=== PATIENT | female | born 1960 | race Caucasian/White ===

== ENCOUNTER 2021-11-27 16:04 | Inpatient (IN) | payer OTHER, SELFPAY ==
[~2021-11-27] VITALS: Ht 175.3 cm; Wt 172.8 kg
[2021-11-27] MEDS: LevALBUTEROL HCL 1.25 MG/0.5 ML *CONC.* VIAL.NEB (XOPENEX CONC.) INH SCH
[2021-11-27 16:05] VITALS: BP_SYST 120
[2021-11-27] MEDS ORDERED: FUROSEMIDE 40 MG/4 ML VIAL IVP ONE (16:15)
[2021-11-27 17:17] LABS: BASOPHILS # (AUTO) 0.1 K/uL (0.0-0.2); BASOPHILS % (AUTO) 0.7 % (0.0-2.0); EOSINOPHILS # (AUTO) 0.1 K/uL (0.0-0.4); EOSINOPHILS % (AUTO) 1.6 % (0.0-4.0); HEMATOCRIT 39.4 % (36-48); HEMOGLOBIN 12.1 g/dL (12.0-16.0); LYMPHOCYTES % (AUTO) 11.5 % (20.5-51.5); MEAN CORPUSCULAR HEMOGLOBIN 22 pg (27-31); MEAN CORPUSCULAR HGB CONC 31 % (32-36); MEAN CORPUSCULAR VOLUME 73 fL (79.0-98.0); NEUTROPHILS # (AUTO) 6.6 K/uL (1.8-7.7); NEUTROPHILS % (AUTO) 75.2 % (40.0-70.0); PLATELET COUNT (AUTO) 277 K/uL (130-430); RED BLOOD CELL COUNT(AUTO) 5.41 MIL/uL (4.2-6.2); RED CELL DISTRIBUTION WIDTH 23.4 % (9.0-15.0); WHITE BLOOD COUNT (AUTO) 8.7 K/uL (4.8-10.8)
[2021-11-27 17:34] LABS: CALCIUM 8.2 mg/dL (8.4-11.0); CREATININE 1.77 mg/dL (0.55-1.30); POTASSIUM 3.8 mmol/L (3.5-5.1)
[2021-11-27] MEDS ORDERED: LISI1TAB57 PO (17:36)
[2021-11-27] MEDS ORDERED: ASPI-1155 PO (17:36)
[2021-11-27] MEDS ORDERED: HUM100IN SQ (17:36)
[2021-11-27] MEDS ORDERED: ATEN-41 PO (17:36)
[2021-11-27] MEDS ORDERED: METF-518 PO (17:36)
[2021-11-27] MEDS ORDERED: LIP80 PO (17:36)
[2021-11-27] MEDS ORDERED: NORT10CA PO (17:38)
[2021-11-27 17:43] LABS: PHOSPHORUS 5.8 mg/dL (2.7-4.5)
[2021-11-27] MEDS ORDERED: ASPIRIN 325 MG TABLET PO ONE (18:15)
[2021-11-27 18:55] VITALS: BP_SYST 120
[2021-11-27] MEDS ORDERED: LevALBUTEROL HCL 1.25 MG/0.5 ML *CONC.* VIAL.NEB (XOPENEX CONC.) INH ONE (19:15)
[2021-11-27] MEDS ORDERED: LevALBUTEROL HCL 1.25 MG/0.5 ML *CONC.* VIAL.NEB (XOPENEX CONC.) INH PRN (19:15)
[2021-11-27 19:34] LABS: BILIRUBIN,URINE NEGATIVE (NEGATIVE); BLOOD, URINE NEGATIVE (NEGATIVE); CLARITY/URINE CLEAR (CLEAR); COLOR,URINE YELLOW (YELLOW); GLUCOSE,URINE NEGATIVE (NEGATIVE); KETONES,URINE NEGATIVE (NEGATIVE); LEUKOCYTE ESTERASE ,URINE NEGATIVE (NEGATIVE); NITRITE, URINE NEGATIVE (NEGATIVE); PH,URINE 5.5 (5.0-8.0); PROTEIN URINE NEGATIVE (NEGATIVE); UROBILINOGEN,URINE 0.2 (0.2-1.0)
[2021-11-27] MEDS: INSULIN NPH/REGULAR 70-30, 100 UNITS/ML, 10 ML VIAL SUBCUT SCH ×2 (20:38→21:00)
[2021-11-27 20:40] VITALS: BP_SYST 93
[2021-11-27] MEDS: ENOXAPARIN SODIUM 40 MG/0.4 ML SYRINGE SUBCUT SCH (21:51)
[2021-11-28] VITALS: BP_SYST 107
[2021-11-28 02:47] VITALS: BP_SYST 87
[2021-11-28 07:25] LABS: BASOPHILS # (AUTO) 0.1 K/uL (0.0-0.2); BASOPHILS % (AUTO) 0.6 % (0.0-2.0); EOSINOPHILS # (AUTO) 0.1 K/uL (0.0-0.4); EOSINOPHILS % (AUTO) 0.8 % (0.0-4.0); HEMATOCRIT 38.1 % (36-48); HEMOGLOBIN 11.5 g/dL (12.0-16.0); LYMPHOCYTES # (AUTO) 1.3 K/uL (1.0-5.5); LYMPHOCYTES % (AUTO) 13.1 % (20.5-51.5); MEAN CORPUSCULAR HEMOGLOBIN 23 pg (27-31); MEAN CORPUSCULAR HGB CONC 30 % (32-36); MEAN CORPUSCULAR VOLUME 75 fL (79.0-98.0); MONOCYTES # (AUTO) 1.3 K/uL (0.0-1.0); MONOCYTES % (AUTO) 13.2 % (1.7-9.3); NEUTROPHILS # (AUTO) 7.3 K/uL (1.8-7.7); NEUTROPHILS % (AUTO) 72.3 % (40.0-70.0); PLATELET COUNT (AUTO) 299 K/uL (130-430); RED BLOOD CELL COUNT(AUTO) 5.12 MIL/uL (4.2-6.2); RED CELL DISTRIBUTION WIDTH 23.6 % (9.0-15.0); WHITE BLOOD COUNT (AUTO) 10.1 K/uL (4.8-10.8)
[2021-11-28 08:00] VITALS: BP_SYST 97
[2021-11-28 08:10] LABS: CALCIUM 8.3 mg/dL (8.4-11.0); CREATININE 2.04 mg/dL (0.55-1.30); POTASSIUM 4.7 mmol/L (3.5-5.1)
[2021-11-28] MEDS ORDERED: ATENOLOL 25 MG TABLET(TENORMIN) PO SCH (09:00)
[2021-11-28] MEDS: cefTRIAXone 1 GM IVPB PREMIX 50 ML IV SCH (09:48)
[2021-11-28] MEDS: NORTRIPTYLINE HCL 10 MG CAPSULE PO SCH (09:52)
[2021-11-28] MEDS: ASPIRIN 81 MG TAB.CHEW PO SCH (09:52)
[2021-11-28] MEDS: ATORVASTATIN 20 MG TABLET PO SCH (09:52)
[2021-11-28] MEDS: INSULIN NPH/REGULAR 70-30, 100 UNITS/ML, 10 ML VIAL SUBCUT SCH ×2 (09:53→20:59)
[2021-11-28] MEDS: AZITHROMYCIN 500 MG in NS 250 ML IV SCH (09:53)
[2021-11-28] MEDS: LevALBUTEROL HCL 1.25 MG/0.5 ML *CONC.* VIAL.NEB (XOPENEX CONC.) INH SCH ×3 (10:30→23:51)
[2021-11-28 12:00] VITALS: BP_SYST 100
[2021-11-28 16:00] VITALS: BP_SYST 104
[2021-11-28] MEDS: INSULIN REGULAR, HUMAN 100 UNITS/ML, 10 ML VIAL (humuLIN R) SUBCUT PRN (16:22)
[2021-11-28 20:08] VITALS: BP_SYST 136
[2021-11-28] MEDS: METHYLPREDNISOLONE SOD SUCC 40 MG/ML VIAL IVP SCH (20:47)
[2021-11-28] MEDS: ENOXAPARIN SODIUM 40 MG/0.4 ML SYRINGE SUBCUT SCH (21:00)
[2021-11-29 00:29] VITALS: BP_SYST 113
[2021-11-29] MEDS: INSULIN REGULAR, HUMAN 100 UNITS/ML, 10 ML VIAL (humuLIN R) SUBCUT PRN ×4 (06:19→21:00)
[2021-11-29 07:09] LABS: BASOPHILS % (AUTO) 0.2 % (0.0-2.0); HEMATOCRIT 38.9 % (36-48); HEMOGLOBIN 11.8 g/dL (12.0-16.0); LYMPHOCYTES # (AUTO) 0.6 K/uL (1.0-5.5); LYMPHOCYTES % (AUTO) 6.5 % (20.5-51.5); MEAN CORPUSCULAR HEMOGLOBIN 22 pg (27-31); MEAN CORPUSCULAR HGB CONC 30 % (32-36); MEAN CORPUSCULAR VOLUME 74 fL (79.0-98.0); MONOCYTES # (AUTO) 0.3 K/uL (0.0-1.0); MONOCYTES % (AUTO) 2.8 % (1.7-9.3); NEUTROPHILS # (AUTO) 8.3 K/uL (1.8-7.7); NEUTROPHILS % (AUTO) 90.5 % (40.0-70.0); PLATELET COUNT (AUTO) 306 K/uL (130-430); RED BLOOD CELL COUNT(AUTO) 5.27 MIL/uL (4.2-6.2); RED CELL DISTRIBUTION WIDTH 23.4 % (9.0-15.0); WHITE BLOOD COUNT (AUTO) 9.2 K/uL (4.8-10.8)
[2021-11-29 07:27] LABS: CALCIUM 8.6 mg/dL (8.4-11.0); CREATININE 1.89 mg/dL (0.55-1.30); POTASSIUM 4.8 mmol/L (3.5-5.1); TOTAL BILIRUBIN 1.7 mg/dL (0.0-1.0)
[2021-11-29 08:00] VITALS: BP_SYST 140
[2021-11-29] MEDS: LevALBUTEROL HCL 1.25 MG/0.5 ML *CONC.* VIAL.NEB (XOPENEX CONC.) INH SCH ×3 (08:14→20:50)
[2021-11-29] MEDS: ASPIRIN 81 MG TAB.CHEW PO SCH (09:19)
[2021-11-29] MEDS: NORTRIPTYLINE HCL 10 MG CAPSULE PO SCH (09:19)
[2021-11-29] MEDS: ATORVASTATIN 20 MG TABLET PO SCH (09:19)
[2021-11-29] MEDS: cefTRIAXone 1 GM IVPB PREMIX 50 ML IV SCH (09:20)
[2021-11-29] MEDS: METHYLPREDNISOLONE SOD SUCC 40 MG/ML VIAL IVP SCH ×2 (09:20→20:48)
[2021-11-29] MEDS: INSULIN NPH/REGULAR 70-30, 100 UNITS/ML, 10 ML VIAL SUBCUT SCH ×2 (09:30→20:58)
[2021-11-29] MEDS: AZITHROMYCIN 500 MG in NS 250 ML IV SCH (10:28)
[2021-11-29 12:00] VITALS: BP_SYST 115
[2021-11-29 16:00] VITALS: BP_SYST 148
[2021-11-29] MEDS ORDERED: FLUTICASONE 250 mCg/SALMETEROL 50 mCg DISKUS W.DEV INH SCH (18:30)
[2021-11-29] MEDS: BUDESONIDE 0.5 MG/2 ML AMPUL.NEB INH SCH (20:22)
[2021-11-29 20:30] VITALS: BP_SYST 137
[2021-11-29] MEDS: ENOXAPARIN SODIUM 40 MG/0.4 ML SYRINGE SUBCUT SCH (20:55)
[2021-11-30 02:00] VITALS: BP_SYST 135
[2021-11-30] MEDS: INSULIN REGULAR, HUMAN 100 UNITS/ML, 10 ML VIAL (humuLIN R) SUBCUT PRN ×4 (06:40→21:07)
[2021-11-30 06:50] LABS: BASOPHILS % (AUTO) 0.3 % (0.0-2.0); EOSINOPHILS % (AUTO) 0.4 % (0.0-4.0); HEMATOCRIT 38.3 % (36-48); HEMOGLOBIN 11.7 g/dL (12.0-16.0); LYMPHOCYTES # (AUTO) 0.5 K/uL (1.0-5.5); LYMPHOCYTES % (AUTO) 5.2 % (20.5-51.5); MEAN CORPUSCULAR HEMOGLOBIN 22 pg (27-31); MEAN CORPUSCULAR HGB CONC 31 % (32-36); MEAN CORPUSCULAR VOLUME 73 fL (79.0-98.0); MONOCYTES # (AUTO) 0.8 K/uL (0.0-1.0); MONOCYTES % (AUTO) 7.5 % (1.7-9.3); NEUTROPHILS # (AUTO) 8.9 K/uL (1.8-7.7); NEUTROPHILS % (AUTO) 86.6 % (40.0-70.0); PLATELET COUNT (AUTO) 281 K/uL (130-430); RED BLOOD CELL COUNT(AUTO) 5.23 MIL/uL (4.2-6.2); RED CELL DISTRIBUTION WIDTH 23.2 % (9.0-15.0); WHITE BLOOD COUNT (AUTO) 10.3 K/uL (4.8-10.8)
[2021-11-30] MEDS: LevALBUTEROL HCL 1.25 MG/0.5 ML *CONC.* VIAL.NEB (XOPENEX CONC.) INH SCH ×3 (07:09→20:13)
[2021-11-30] MEDS: BUDESONIDE 0.5 MG/2 ML AMPUL.NEB INH SCH ×2 (07:10→20:12)
[2021-11-30 07:32] LABS: ALBUMIN 3.2 g/dL (3.4-4.8); CALCIUM 9.2 mg/dL (8.4-11.0); CREATININE 1.38 mg/dL (0.55-1.30); TOTAL BILIRUBIN 1.1 mg/dL (0.0-1.0)
[2021-11-30 08:00] VITALS: BP_SYST 150
[2021-11-30] MEDS: METHYLPREDNISOLONE SOD SUCC 40 MG/ML VIAL IVP SCH ×2 (09:40→20:52)
[2021-11-30] MEDS: ASPIRIN 81 MG TAB.CHEW PO SCH (09:40)
[2021-11-30] MEDS: cefTRIAXone 1 GM IVPB PREMIX 50 ML IV SCH (09:40)
[2021-11-30] MEDS: ATORVASTATIN 20 MG TABLET PO SCH (09:41)
[2021-11-30] MEDS: AZITHROMYCIN 500 MG in NS 250 ML IV SCH (09:43)
[2021-11-30] MEDS: NORTRIPTYLINE HCL 10 MG CAPSULE PO SCH (09:46)
[2021-11-30] MEDS: INSULIN NPH/REGULAR 70-30, 100 UNITS/ML, 10 ML VIAL SUBCUT SCH ×2 (09:48→21:03)
[2021-11-30 12:40] VITALS: BP_SYST 149
[2021-11-30 17:05] VITALS: BP_SYST 145
[2021-11-30 20:30] VITALS: BP_SYST 163
[2021-11-30] MEDS: ENOXAPARIN SODIUM 40 MG/0.4 ML SYRINGE SUBCUT SCH (21:00)
[2021-12-01 02:00] VITALS: BP_SYST 148; BP_SYST 155
[2021-12-01] MEDS: INSULIN REGULAR, HUMAN 100 UNITS/ML, 10 ML VIAL (humuLIN R) SUBCUT PRN ×4 (06:12→21:22)
[2021-12-01] MEDS: BUDESONIDE 0.5 MG/2 ML AMPUL.NEB INH SCH ×2 (07:27→20:26)
[2021-12-01] MEDS: LevALBUTEROL HCL 1.25 MG/0.5 ML *CONC.* VIAL.NEB (XOPENEX CONC.) INH SCH ×2 (07:27→15:00)
[2021-12-01 08:04] VITALS: BP_SYST 150
[2021-12-01] MEDS: cefTRIAXone 1 GM IVPB PREMIX 50 ML IV SCH (08:54)
[2021-12-01] MEDS: ASPIRIN 81 MG TAB.CHEW PO SCH (08:54)
[2021-12-01] MEDS: METHYLPREDNISOLONE SOD SUCC 40 MG/ML VIAL IVP SCH ×2 (08:55→21:08)
[2021-12-01] MEDS: NORTRIPTYLINE HCL 10 MG CAPSULE PO SCH (08:55)
[2021-12-01] MEDS: ATORVASTATIN 20 MG TABLET PO SCH (08:55)
[2021-12-01] MEDS: INSULIN NPH/REGULAR 70-30, 100 UNITS/ML, 10 ML VIAL SUBCUT SCH ×2 (09:22→21:23)
[2021-12-01] MEDS: AZITHROMYCIN 500 MG in NS 250 ML IV SCH (10:45)
[2021-12-01 11:33] VITALS: BP_SYST 121
[2021-12-01 15:39] VITALS: BP_SYST 134
[2021-12-01 16:24] VITALS: BP_SYST 134
[2021-12-01 20:30] VITALS: BP_SYST 145
[2021-12-01] MEDS: ENOXAPARIN SODIUM 40 MG/0.4 ML SYRINGE SUBCUT SCH (21:20)
[2021-12-02] MEDS: LevALBUTEROL HCL 1.25 MG/0.5 ML *CONC.* VIAL.NEB (XOPENEX CONC.) INH SCH ×4 (03:33→23:46)
[2021-12-02] MEDS: INSULIN REGULAR, HUMAN 100 UNITS/ML, 10 ML VIAL (humuLIN R) SUBCUT PRN ×4 (06:29→21:42)
[2021-12-02 06:30] LABS: ALBUMIN 3.3 g/dL (3.4-4.8); CALCIUM 9.1 mg/dL (8.4-11.0); CREATININE 1.05 mg/dL (0.55-1.30); TOTAL BILIRUBIN 1.4 mg/dL (0.0-1.0)
[2021-12-02 06:35] LABS: BASOPHILS % (AUTO) 0.2 % (0.0-2.0); HEMATOCRIT 40.4 % (36-48); HEMOGLOBIN 12.2 g/dL (12.0-16.0); LYMPHOCYTES # (AUTO) 0.4 K/uL (1.0-5.5); LYMPHOCYTES % (AUTO) 5.6 % (20.5-51.5); MEAN CORPUSCULAR HEMOGLOBIN 22 pg (27-31); MEAN CORPUSCULAR HGB CONC 30 % (32-36); MEAN CORPUSCULAR VOLUME 74 fL (79.0-98.0); MONOCYTES # (AUTO) 0.6 K/uL (0.0-1.0); MONOCYTES % (AUTO) 8.2 % (1.7-9.3); NEUTROPHILS # (AUTO) 6.5 K/uL (1.8-7.7); PLATELET COUNT (AUTO) 304 K/uL (130-430); RED BLOOD CELL COUNT(AUTO) 5.44 MIL/uL (4.2-6.2); RED CELL DISTRIBUTION WIDTH 23.4 % (9.0-15.0); WHITE BLOOD COUNT (AUTO) 7.5 K/uL (4.8-10.8)
[2021-12-02] MEDS: BUDESONIDE 0.5 MG/2 ML AMPUL.NEB INH SCH ×2 (07:40→19:00)
[2021-12-02 08:00] VITALS: BP_SYST 138
[2021-12-02] MEDS: ATORVASTATIN 20 MG TABLET PO SCH (08:54)
[2021-12-02] MEDS: INSULIN NPH/REGULAR 70-30, 100 UNITS/ML, 10 ML VIAL SUBCUT SCH ×2 (08:55→21:45)
[2021-12-02] MEDS: cefTRIAXone 1 GM IVPB PREMIX 50 ML IV SCH (08:56)
[2021-12-02] MEDS: METHYLPREDNISOLONE SOD SUCC 40 MG/ML VIAL IVP SCH ×2 (08:56→21:27)
[2021-12-02] MEDS: NORTRIPTYLINE HCL 10 MG CAPSULE PO SCH (08:56)
[2021-12-02] MEDS: ASPIRIN 81 MG TAB.CHEW PO SCH (08:56)
[2021-12-02] MEDS: FUROSEMIDE 40 MG TABLET PO SCH (08:57)
[2021-12-02] MEDS: AZITHROMYCIN 500 MG in NS 250 ML IV SCH (10:22)
[2021-12-02 12:00] VITALS: BP_SYST 124
[2021-12-02 20:15] VITALS: BP_SYST 160
[2021-12-02] MEDS: ENOXAPARIN SODIUM 40 MG/0.4 ML SYRINGE SUBCUT SCH (21:39)
[2021-12-03 05:45] VITALS: BP_SYST 157
[2021-12-03] MEDS: INSULIN REGULAR, HUMAN 100 UNITS/ML, 10 ML VIAL (humuLIN R) SUBCUT PRN (06:45)
[2021-12-03] MEDS: BUDESONIDE 0.5 MG/2 ML AMPUL.NEB INH SCH (07:33)
[2021-12-03] MEDS: LevALBUTEROL HCL 1.25 MG/0.5 ML *CONC.* VIAL.NEB (XOPENEX CONC.) INH SCH (07:33)
[2021-12-03 07:43] VITALS: BP_SYST 152
[2021-12-03 07:45] VITALS: BP_SYST 152
[2021-12-03] MEDS: cefTRIAXone 1 GM IVPB PREMIX 50 ML IV SCH (08:37)
[2021-12-03] MEDS: ATORVASTATIN 20 MG TABLET PO SCH (08:47)
[2021-12-03] MEDS: FUROSEMIDE 40 MG TABLET PO SCH (08:48)
[2021-12-03] MEDS: ASPIRIN 81 MG TAB.CHEW PO SCH (08:48)
[2021-12-03] MEDS: NORTRIPTYLINE HCL 10 MG CAPSULE PO SCH (08:56)
[2021-12-03] MEDS ORDERED: predniSONE 20 MG TABLET PO SCH (09:00)
[2021-12-03] MEDS: INSULIN NPH/REGULAR 70-30, 100 UNITS/ML, 10 ML VIAL SUBCUT SCH (09:12)
[2021-12-03] MEDS ORDERED: FLUT1DIS3 IH (10:35)
[2021-12-03] MEDS ORDERED: FURO10VI27 IVP (10:36)
[2021-12-03] MEDS ORDERED: PRED20TA PO (10:37)
[2021-12-03] MEDS ORDERED: AMOX-426 PO (10:37)
== END 2021-12-03 11:20 | disposition home or self-care (01) | DRG 189 ==
LOC: SED 16:04 → STU 18:16
PROVIDERS: ADMIT Family Medicine; ATTEND Family Medicine
DX: J96.21 Acute and chronic respiratory failure with hypoxia (principal); J44.1 Chronic obstructive pulmonary disease with (acute) exacerbation; Z68.43 Body mass index [BMI] 50.0-59.9, adult; N18.4 Chronic kidney disease, stage 4 (severe); J96.22 Acute and chronic respiratory failure with hypercapnia; I27.81 Cor pulmonale (chronic); F17.210 Nicotine dependence, cigarettes, uncomplicated; E66.01 Morbid (severe) obesity due to excess calories; I12.9 Hypertensive chronic kidney disease with stage 1 through stage 4 chronic kidney disease, or unspecified chronic kidney disease; E11.22 Type 2 diabetes mellitus with diabetic chronic kidney disease; I89.0 Lymphedema, not elsewhere classified; Z20.822 Contact with and (suspected) exposure to COVID-19; Z79.4 Long term (current) use of insulin; Z79.82 Long term (current) use of aspirin; Z79.84 Long term (current) use of oral hypoglycemic drugs; Z79.899 Other long term (current) drug therapy; Z86.16 Personal history of COVID-19
CPT/HCPCS: 36415; 36600; 71045; 78579; 78580-TC; 80048; 80053; 80061; 81003; 82803-TC; 82962; 83036; 83735; 83880; 84100; 84484; 85025; 85379; 93005; 93306; 94640; 94760; 96374; 99285; A9539; A9540; G0378; J0456; J0696; J1030; J1650; J1815; J1940; J7050; J7512; J7612; J7626